=== PATIENT | male | born 1990 | race Two or more races ===

== ENCOUNTER 2016-04-23 | Emergency (ER) | payer OTHER ==
[2014-08-23 05:28] VITALS: BMI 27.2
[~2016-04-23] MED LIST: AUGMENTIN 875-11 TAB PO; COUMADIN10 MG PO; ELIQUIS2.5 MG PO; HYDROCODON-ACE1 EAC7 PO
== END 2016-04-23 02:00 | disposition home or self-care (01) ==
LOC: D.ER
DX: J06.9 Acute upper respiratory infection, unspecified (principal)

== ENCOUNTER 2017-06-01 01:14 | Emergency (ER) | payer OTHER ==
[2014-08-23 05:28] VITALS: BMI 27.2
== END 2017-06-01 02:50 | disposition home or self-care (01) ==
LOC: D.ER 01:14
DX: I82.432 Acute embolism and thrombosis of left popliteal vein (principal); M79.662 Pain in left lower leg

== ENCOUNTER 2017-08-14 15:15 | Emergency (ER) | payer BC ==
[2014-08-23 05:28] VITALS: BMI 27.2
== END 2017-08-14 18:26 | disposition home or self-care (01) ==
LOC: D.ER 15:15
DX: S40.012A Contusion of left shoulder, initial encounter (principal); V49.9XXA Car occupant (driver) (passenger) injured in unspecified traffic accident, initial encounter; Y93.89 Activity, other specified; Y92.410 Unspecified street and highway as the place of occurrence of the external cause